=== PATIENT | female | born 1980 | race African-American/Black ===

== ENCOUNTER 2018-07-18 03:27 | Emergency (ER) | payer MEDICAID ==
[~2018-07-18] VITALS: Ht 152.4 cm; Wt 64.4 kg
[2018-07-18 03:40] VITALS: BP 109/86
[2018-07-18] MEDS ORDERED: KETOROLAC TROMETH 60MG/2ML VIAL IM ONE (05:15)
[2018-07-18] MEDS ORDERED: cefTRIAXone SOD 1,000 MG VL IM ONE (05:15)
[2018-07-18] MEDS ORDERED: BENZOCAINE (DENTAL) 20 % SPRAY 60ML MT ONE (05:30)
== END 2018-07-18 05:52 | disposition home or self-care (01) ==
LOC: ER 03:30
DX: K02.9 Dental caries, unspecified (principal); W01.198A Fall on same level from slipping, tripping and stumbling with subsequent striking against other object, initial encounter; Y93.01 Activity, walking, marching and hiking; Y99.8 Other external cause status; Y92.89 Other specified places as the place of occurrence of the external cause
CPT/HCPCS: 96372; 99283; J0696; J1885